=== PATIENT | female | born 1960 | race Caucasian/White ===

== ENCOUNTER 2017-12-11 19:34 | Emergency (ER) | payer OTHER ==
[2017-12-11 19:49] VITALS: BP 177/88; PULSE 74; TEMP 98.1; BMI 32.9
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
[2017-12-11] MEDS ORDERED: RANITIDINE HCL 150 MG TABLET (FP) PO ONE (20:38)
[2017-12-11] MEDS ORDERED: KETOROLAC TROMETHAMINE 60 MG/2 ML VIAL IM ONE (20:38)
[2017-12-11] MEDS ORDERED: KETOROLAC TROMETHAMINE 60 MG/2 ML VIAL ONE (20:40)
--- NOTE | 2017-12-11 20:48 | PDOC ---
History of Present Illness - General Chief Complaint: Pain Stated Complaint: PAIN Time Seen by Provider: 12/11/17 19:45 - History of Present Illness Initial Comments: 57-year-old female with a past medical history significant for hypertension presents for evaluation of low back pain with left leg radiculopathy. She denies any loss of bowel or bladder function. She describes her back pain is achy exacerbated with activity relieved with rest with radiation down the posterior lateral aspect of the left leg and now starting to go down the posterior lateral aspect of the right leg. She has taken Naprosyn for pain without much relief. 12/11/17 20:39 Past History - Past Medical History Allergies/Adverse Reactions: Allergies Allergy/AdvReac Type Severity Reaction Status Date / Time No Known Allergies Allergy Verified 12/11/17 19:39 Home Medications: Ambulatory Orders Aspirin 81 mg PO ASDIR 12/11/17 Cyclobenzaprine HCl [Flexeril 10 mg] 10 mg PO HS PRN #10 tablet 12/11/17 Methylprednisolone [Medrol Dose Mustapha] 4 mg PO ASDIR #21 tablet 12/11/17 COPD: No Hypercholesterolemia: Yes - Suicide/Smoking/Psychosocial Hx Smoking History: Current every day smoker Number of Cigarettes Smoked Daily: 20 Information on smoking cessation initiated: No 'Breaking Loose' booklet given: 04/01/16 Hx Alcohol Use: Yes (OCCASIONAL) Drug/Substance Use Hx: No Substance Use Type: None Review of Systems - Review of Systems Musculoskeletal: Yes: Back Pain All Other Systems: Reviewed and Negative *Physical Exam - Vital Signs Last Vital Signs Temp Pulse Resp BP Pulse Ox 98.1 F 74 18 177/88 97 12/11/17 19:40 12/11/17 19:40 12/11/17 19:40 12/11/17 19:40 12/11/17 19:40 - Physical Exam Comments: Lumbar spine skin color and temperature within normal limits there is mild tenderness and paralumbar musculature spasm on the left negative on the right. She has 5 out of 5 strength in bilateral lower extremities she has a positive straight leg raise test on the left negative on the right. She has no gross sensory and motor deficits she's neurovascularly intact. 12/11/17 20:48 Medical Decision Making - Medical Decision Making CAT scan of the cervical spine shows degenerative changes from L2-L4 with no acute fracture. Medrol Dosepak and Flexeril follow-up with spine surgery. 12/11/17 22:45 *DC/Admit/Observation/Transfer Diagnosis at time of Disposition: Lumbar radiculopathy - Discharge Dispostion Disposition: HOME Condition at time of disposition: Stable Decision to Admit order: No - Prescriptions Prescriptions: Cyclobenzaprine HCl [Flexeril 10 mg] 10 mg PO HS PRN #10 tablet PRN Reason: Muscle Spasms Methylprednisolone [Medrol Dose Mustapha] 4 mg PO ASDIR #21 tablet - Referrals Referrals: Julianne Jones MD [Primary Care Provider] - John Moon MD [Staff Physician] - - Patient Instructions Printed Discharge Instructions: Lumbar Radiculopathy, DI for Lumbar Radiculopathy Additional Instructions: I've given you a prescription for steroid pack as well as a muscle relaxer. Start the steroid pack in the morning and follow the instructions on the back of the pack. The muscle relaxers one pill before bedtime. Return to the emergency room if your symptoms worsen or go unresolved. Follow-up with spine surgery in the next 1-2 days. - Post Discharge Activity
[2017-12-11] MEDS ORDERED: RANITIDINE HCL 150 MG TABLET (FP) ONE (21:30)
== END 2017-12-11 22:50 | disposition home or self-care (01) ==
LOC: JERFT 19:34
PROC: 3E0233Z Introduction of Anti-inflammatory into Muscle, Percutaneous Approach (ICD-10-PCS; principal; 2017-12-11)
DX: M54.16 Radiculopathy, lumbar region (principal)
CPT/HCPCS: 72131-TC; 96372; 99281-25

== ENCOUNTER 2018-04-30 08:13 | Day surgery (SDC) | payer OTHER ==
[2018-04-23 17:14] VITALS: BMI 32.9
--- NOTE | 2018-04-30 07:31 | HP ---
History & Physical Update - History History: No Change - Physical Physical: No Change - Assessment Assessment: No Change - Plan Plan: No Change (Initial H&P located in patient's paper chart. Here today for L3 /4 laminectomy, possible discectomy. C/o LBP with radiculopathy (LLE).)
[2018-04-30] MEDS ORDERED: GABAPENTIN 300 MG CAPSULE (FP) PO STA (08:36)
[2018-04-30] MEDS ORDERED: oxyCODONE HCL 10 MG SUSTAINED ACTING TABLET PO STA (08:36)
[2018-04-30] MEDS ORDERED: DEXAMETHASONE SOD PHOSPHATE/PF 10 MG/ML SDV ONE (11:22)
[2018-04-30] MEDS ORDERED: BUPIVACAINE HCL/PF 2.5 MG/ML - 30 ML VIAL IJ ONE ×2 (11:23→13:18)
[2018-04-30] MEDS ORDERED: MIDAZOLAM HCL 2 MG/2 ML SINGLE DOSE VIAL ONE (11:23)
[2018-04-30] MEDS ORDERED: BUPIVACAINE HCL/PF (5 MG/ML) 30 ML VIAL IJ ONE (11:27)
[2018-04-30] MEDS ORDERED: methylPREDNISolone ACET (DEPO) 40 MG/1 ML VIAL ONE (11:28)
[2018-04-30] MEDS ORDERED: THROMBIN (BOVINE) 5,000 UNIT VIAL TP ONE ×2 (11:29→12:50)
[2018-04-30] MEDS ORDERED: LIDOCAINE 1%/EPI 1:100000 (20 ML MULTI DOSE VIAL) ONE (11:29)
[2018-04-30] MEDS ORDERED: ONDANSETRON 4 MG/2 ML VIAL ONE (12:14)
[2018-04-30] MEDS ORDERED: ceFAZolin SODIUM 1 GM VIAL ONE (12:14)
[2018-04-30] MEDS ORDERED: DEXAMETHASONE SOD PHOSPHATE 4 MG/1 ML VIAL ONE (12:14)
[2018-04-30] MEDS ORDERED: LIDOCAINE 1%/EPI 1:100000 (50 ML MULTI DOSE VIAL) INF ONE ×2 (12:15→12:30)
[2018-04-30] MEDS ORDERED: BUPIVACAINE HCL/PF 0.25% (2.5MG/ML) 10 ML VIAL IJ ONE (13:20)
[2018-04-30] MEDS ORDERED: methylPREDNISolone ACET (DEPO) 40 MG/1 ML VIAL IM ONE (13:21)
--- NOTE | 2018-04-30 14:05 | OP ---
Operative Note - Note: Operative Date: 04/30/18 Pre-Operative Diagnosis: L3-4 stenosis and radiculopathy Operation: L3-4 lamiectomy Post-Operative Diagnosis: Same as Pre-op Surgeon: Naldo Bateman Erp Implementation Consultant: Reba Mcdermott Anesthesiologist/[employer] SERVICE EMPLOYEE: Sylvie Ashby Anesthesia: Spinal, Local (TLIP) Estimated Blood Loss (mls): 20 Fluid Volume Replaced (mls): 400 Operative Report Dictated: Yes
--- NOTE | 2018-04-30 14:07 | SURG ---
Surgery Senior Account Clerk Note Senior Account Clerk: Reba Mcdermott PA-C Date of Service: 04/30/18 Diagnosis: L3-4 stenosis, radiculopathy Procedure: L3-4 lamiectomy I was present for the entirety of the operative procedure. For further detail, please refer to operative report. Visit type - Case Type Case Type: Scheduled - New patient This patient is new to me today: Yes Date on this admission: 04/30/18
--- NOTE | 2018-04-30 14:12 | OP ---
DATE OF OPERATION: 04/30/2018 PREOPERATIVE DIAGNOSIS: Spinal stenosis L3-L4. POSTOPERATIVE DIAGNOSIS: Spinal stenosis L3-L4. PROCEDURE PERFORMED: Laminectomy L3-L4. SURGEON: Naldo Bateman MD IMPLEMENTATION DIRECTOR: CHANTEL Purvis ESTIMATED BLOOD LOSS: 50 mL. IV FLUIDS: Per Anesthesia. ANESTHESIA: Spinal/TLIP. COMPLICATIONS: There were none. DISPOSITION: The patient was brought to the PACU in stable condition. INDICATIONS FOR SURGERY: The patient is a 57-year-old female who has been suffering from pain from her back down her left leg. X-rays and MRI were completed, which noted that she had spinal stenosis at L3-L4. She had gone through an exhaustive course of treatment for this, which included medications, physical therapy as well as injections. Unfortunately, her pain continued to persist despite all this. At this point, risks, benefits, and alternatives were discussed, and the patient consented to surgery. DESCRIPTION OF PROCEDURE: The patient was brought to the operating room by the Anesthesia staff. After appropriate patient identification was performed, spinal anesthesia was given along with a TLIP block. The patient was able to position herself prone onto the OR table with all areas of bony prominences well padded at this time. Two needles were placed into the back to stefania off the L3-L4 segment. X-ray was taken to confirm this was correct. The needle was removed, and 10 mL of lidocaine with epinephrine was injected into her back. At this time, her back was prepped and draped in a sterile manner. At this point, a time-out was completed. An incision was made from the top of L3 down to the bottom of L4. Dissection was carried down to the fascia. Fascia was split open at this time, and appropriate retractor was then placed in. A spinal needle was placed onto the L3 lamina to stefania off the L3-L4 level. X-rays was taken to confirm this was correct. This needle was removed, and the interspinous ligament at L3-L4 was removed. Portions of the L3-L4 spinous process were removed. Portions of the L3- L4 were removed. The flavum was identified. It was removed. A complete decompression was performed such that by the end of the procedure the L4 nerve root appeared to be well decompressed. All bleeding was well controlled at this time. Steri-Strips was placed over the nerve root. FloSeal was placed over that. The fascia was closed with a No. 1 Vicryl suture. The subcutaneous tissue was closed with 2-0 Vicryl suture. The skin was closed with 3-0 Monocryl suture. Dermabond was applied. Steri-Strips were applied. A sterile dressing was applied. The patient was placed supine on the OR bed and brought to the PACU in stable condition. Ludmila PENA/[id number]
[2018-04-30] MEDS ORDERED: oxyCODONE HCL 5 MG TABLET PO PRN ×2 (14:32)
[2018-04-30] MEDS ORDERED: ONDANSETRON 4 MG/2 ML VIAL IVPUSH PRN (14:32)
[2018-04-30 17:19] VITALS: BP 120/67; PULSE 61; TEMP 98
== END 2018-04-30 17:15 | disposition home or self-care (01) ==
LOC: FASU 08:13
PROVIDERS: ATTEND Orthopaedic Surgery Orthopaedic Surgery of the Spine
PROC: 01NB0ZZ Release Lumbar Nerve, Open Approach (ICD-10-PCS; principal; 2018-04-30 11:58)
DX: M48.061 Spinal stenosis, lumbar region without neurogenic claudication (principal)
CPT/HCPCS: 72100-TC-FY; 76000-TC-FY; 94760